=== PATIENT | male | born 1940 | race Hispanic/Latino ===

== ENCOUNTER 2018-06-23 12:14 | Emergency (ER) | payer MEDICARE ==
[2018-06-23 12:22] VITALS: RESP 18; O2SAT 99
--- NOTE | 2018-06-23 13:29 | ED PDOC ---
HPI: Eye Injury/Pain Time Seen by Provider: 06/23/18 12:22 Chief Complaint (Nursing): Eye Problem Chief Complaint (Provider): Right Eye Pain History Per: Patient History/Exam Limitations: no limitations Onset/Duration Of Symptoms: Days Current Symptoms Are (Timing): Still Present Associated Symptoms: Decreased Vision Additional Complaint(s): 78 year old male with PMHx of HTN and silent WI presents to the ER for an evaluation of blurred vision onset at 10pm while playing cards. He could not focus but he could see far. He reports while going outside when taking the 3rd step down, he missed and fell down the stairs forward hurting is right side. Patient denies dizziness, loss of consciousness, headache, double vison, nausea , vomiting, chest pain, shortness of breath or trouble with speck or movement. PMD: Dr. Lancaster Past Medical History Reviewed: Historical Data, Nursing Documentation, Vital Signs Vital Signs: Last Vital Signs Temp 98 F 06/23/18 12:18 Pulse 82 06/23/18 12:18 Resp 18 06/23/18 12:18 BP Pulse Ox 99 06/23/18 12:18 - Medical History PMH: HTN Denies: Chronic Kidney Disease - Surgical History Surgical History: Denies: Pacemaker Other surgeries: umbilical hernia, regular hernia repair - Family History Family History: States: Unknown Family Hx - Social History Current smoker - smoking cessation education provided: No Alcohol: None Drugs: Denies - Home Medications Home Medications: Ambulatory Orders Medication Instructions Recorded No Known Home Med 07/10/16 - Allergies Allergies/Adverse Reactions: Allergies Allergy/AdvReac Type Severity Reaction Status Date / Time No Known Allergies Allergy Verified 07/10/16 11:39 Review of Systems ROS Statement: Except As Marked, All Systems Reviewed And Found Negative Eyes: Positive for: Vision Change Cardiovascular: Negative for: Chest Pain Respiratory: Negative for: Shortness of Breath Gastrointestinal: Negative for: Nausea, Vomiting Neurological: Negative for: Headache, Dizziness, Other (LOC) Psych: Negative for: Suicidal ideation (homicidal ideation) Physical Exam - Reviewed Nursing Documentation Reviewed: Yes Vital Signs Reviewed: Yes - Physical Exam Appears: Positive for: Non-toxic, No Acute Distress Head Exam: Positive for: ATRAUMATIC, NORMAL INSPECTION, NORMOCEPHALIC Skin: Positive for: Normal Color, Warm, Dry Eye Exam: Positive for: EOMI, Normal appearance, PERRL ENT: Positive for: Normal ENT Inspection (tongue midline) Neck: Positive for: Normal, Painless ROM, Supple. Negative for: Decreased ROM Cardiovascular/Chest: Positive for: Regular Rate, Rhythm. Negative for: Murmur Respiratory: Positive for: Normal Breath Sounds. Negative for: Decreased Breath Sounds, Wheezing, Respiratory Distress Gastrointestinal/Abdominal: Positive for: Normal Exam, Soft. Negative for: Tenderness, Guarding, Rebound Back: Positive for: Normal Inspection Extremity: Positive for: Normal ROM. Negative for: Tenderness, Pedal Edema, Deformity Neurologic/Psych: Positive for: Alert, Oriented (x3). Negative for: Motor/ Sensory Deficits, Facial Droop - Laboratory Results Result Diagrams: 06/23/18 13:22 06/23/18 13:30 - ECG O2 Sat by Pulse Oximetry: 99 (RA) Pulse Ox Interpretation: Normal Medical Decision Making Medical Decision Making: Time: 1238 Initial Impression: Initial Plan: blurred vision r/o neurological and optical issue --Head w/o Contrast CT --BMP --ED Urine Dipstick --CBC w/ Differential --Erythrocyte Sediment Rate --IV Insertion --Reevaluation Time: 1403 PROCEDURE: CT HEAD WITHOUT CONTRAST. HISTORY: blurred vision since 10pm yesterday COMPARISON: None available. TECHNIQUE: Axial computed tomography images were obtained through the head/brain without intravenous contrast. Radiation dose: Total exam DLP = 903 mGy-cm. This CT exam was performed using one or more of the following dose reduction techniques: Automated exposure control, adjustment of the mA and/or kV according to patient size, and/or use of iterative reconstruction technique. FINDINGS: HEMORRHAGE: No intracranial hemorrhage. BRAIN: No mass effect or edema. There is mild generalized cerebral atrophy there is periventricular mild hypodensity and bilateral small hypodensities in the deep white matter temporal lobe findings are compatible with chronic microvascular ischemic changes and or tiny lacunes VENTRICLES: Unremarkable. No hydrocephalus. CALVARIUM: Unremarkable. PARANASAL SINUSES: Unremarkable as visualized. No significant inflammatory changes. MASTOID AIR CELLS: Unremarkable as visualized. No inflammatory changes. OTHER FINDINGS: Prominent interhemispheric dural calcification. IMPRESSION: No intracranial hemorrhage or mass effect. . . Mild generalized cerebral atrophy there is periventricular mild hypodensity and bilateral small hypodensities in the deep white matter temporal lobe findings are compatible with chronic microvascular ischemic changes and or tiny lacunes Scribe Attestation: Documented by Maximiliano Guerra, acting as a scribe for Jeannine Bedolla MD Provider Scribe Attestation: All medical record entries made by the Scribe were at my direction and personally dictated by me. I have reviewed the chart and agree that the record accurately reflects my personal performance of the history, physical exam, medical decision making, and the department course for this patient. I have also personally directed, reviewed, and agree with the discharge instructions and disposition. 2.15p - case reviewed with Dr. Cunha. Advised outpatient followup with her if he does not have a neurologist. Disposition - Clinical Impression Clinical Impression: Blurred vision, Double vision - Patient ED Disposition Is Patient to be Admitted: No Doctor Will See Patient In The: Office Counseled Patient/Family Regarding: Diagnosis, Need For Followup - Disposition Referrals: Beny Cunha MD [Medical Doctor] - Edgard Lancaster MD [Family Provider] - [facility] [Outside] Disposition: Routine/Home Disposition Time: 14:15 Condition: STABLE Instructions: Double Vision Forms: [facility] (Chinese) - POA Present On Arrival: Falls Or Trauma
[2018-06-23 13:46] LABS: BASO % 0.5 % (0.0-2.0); EOS # 0.2 K/uL (0.0-0.7); EOS % 4.1 % (0.0-4.0); LYMPH # 0.6 K/uL (1.0-4.3); LYMPH % 11.4 % (20.0-40.0); MEAN CELL VOLUME 91.3 fl (80.0-94.0); MEAN CORPUSCULAR HEMOGLOBIN 32.2 pg (27.0-31.0); MEAN CORPUSCULAR HGB CONC 35.3 g/dL (33.0-37.0); MEAN PLATELET VOLUME 8.4 fl (7.2-11.7); MONO # 0.4 K/uL (0.0-0.8); MONO % 7.1 % (0.0-10.0); NEUT # 4.1 K/uL (1.8-7.0); NEUT % 76.9 % (50.0-75.0); NRBC % 0.2 % (0.0-0.0); RBC 4.36 Mil/uL (4.40-5.90); RED CELL DISTRIBUTION WIDTH 14.3 % (11.5-14.5); WHITE BLOOD COUNT 5.4 K/uL (4.8-10.8)
[2018-06-23 13:58] LABS: BLOOD UREA NITROGEN 19 mg/dl (9-20); CALCIUM 8.9 mg/dL (8.4-10.2); GFR NON-AFRICAN AMERICAN 54
--- NOTE | 2018-06-23 14:04 | CT ---
Date of service: 06/23/2018 PROCEDURE: CT HEAD WITHOUT CONTRAST. HISTORY: blurred vision since 10pm yesterday COMPARISON: None available. TECHNIQUE: Axial computed tomography images were obtained through the head/brain without intravenous contrast. Radiation dose: Total exam DLP = 903 mGy-cm. This CT exam was performed using one or more of the following dose reduction techniques: Automated exposure control, adjustment of the mA and/or kV according to patient size, and/or use of iterative reconstruction technique. FINDINGS: HEMORRHAGE: No intracranial hemorrhage. BRAIN: No mass effect or edema. There is mild generalized cerebral atrophy there is periventricular mild hypodensity and bilateral small hypodensities in the deep white matter temporal lobe findings are compatible with chronic microvascular ischemic changes and or tiny lacunes VENTRICLES: Unremarkable. No hydrocephalus. CALVARIUM: Unremarkable. PARANASAL SINUSES: Unremarkable as visualized. No significant inflammatory changes. MASTOID AIR CELLS: Unremarkable as visualized. No inflammatory changes. OTHER FINDINGS: Prominent interhemispheric dural calcification. IMPRESSION: No intracranial hemorrhage or mass effect. . . Mild generalized cerebral atrophy there is periventricular mild hypodensity and bilateral small hypodensities in the deep white matter temporal lobe findings are compatible with chronic microvascular ischemic changes and or tiny lacunes
[2018-06-23 15:11] VITALS: BP 131/70; PULSE 88; TEMP 98.4
== END 2018-06-23 14:40 | disposition home or self-care (01) ==
LOC: H.ER 12:14
DX: H53.2 Diplopia (principal); H53.8 Other visual disturbances; I10 Essential (primary) hypertension